=== PATIENT | female | born 1995 | race Caucasian/White ===

== ENCOUNTER 2017-01-20 16:20 | Emergency (ER) | payer BC ==
[~2017-01-20] VITALS: Ht 162.6 cm; Wt 72.9 kg
[2017-01-20] MEDS ORDERED: ESCI5TAB7 PO (16:57)
[2017-01-20 17:09] LABS: HEMATOCRIT 43.6 % (34.6-47.8); HEMOGLOBIN 14.6 g/dL (11.7-16.4); WHITE BLOOD COUNT 7.9 x10^3/uL (3.4-10)
[2017-01-20 17:19] LABS: BLOOD UREA NITROGEN 12 mg/dL (7-18)
[2017-01-20 18:03] VITALS: BP 113/78
== END 2017-01-20 18:05 | disposition home or self-care (01) ==
LOC: ED 17:45
DX: R20.2 Paresthesia of skin (principal); E10.9 Type 1 diabetes mellitus without complications; Z79.4 Long term (current) use of insulin
CPT/HCPCS: 36415; 80048; 82040; 85025; 99285